=== PATIENT | female | born 1945 | race Caucasian/White ===

== ENCOUNTER 2021-08-17 18:10 | Inpatient (IN) | payer OTHER ==
[2021-08-17 23:50] VITALS: BP 141/70
[2021-08-18 00:44] LABS: HEMATOCRIT 35.3 % (37.0-47.0); HEMOGLOBIN 11.8 gm/dL (12.0-15.0); MCH 31.4 pg (26.0-34.0); MCHC 33.4 g/dL (28.0-37.0); RBC 3.75 mil/uL (4.20-5.00); RDW 15.4 % (10.5-14.5); WBC 8.5 thou/uL (4.0-11.0)
[2021-08-18 00:51] LABS: APTT 34.2 Seconds (24.5-32.8); INR 1.14; PROTIME 12.4 Seconds (10.5-12.1)
[2021-08-18 00:58] LABS: CALCIUM 8.5 mg/dL (8.5-10.1); CREATININE 1.5 mg/dL (0.6-1.0); POTASSIUM 3.7 mmol/L (3.5-5.1); TOTAL BILIRUBIN 0.4 mg/dL (0.2-1.0); TOTAL PROTEIN 6.5 g/dL (6.4-8.2)
[2021-08-18] MEDS ORDERED: VITAMIN B-121000 MC2 PO (02:39)
[2021-08-18] MEDS ORDERED: PROAIR HFA8.5 GM INH (03:28)
[2021-08-18] MEDS ORDERED: COREG25 M1 PO (03:32)
[2021-08-18] MEDS ORDERED: CETIRIZINE HCL10 MG PO (03:35)
[2021-08-18] MEDS ORDERED: SPIRONOLACT/HC1 EACH PO (03:37)
[2021-08-18] MEDS ORDERED: LEVOTHYROXINE100 MC2 PO (03:39)
[2021-08-18] MEDS ORDERED: SINGULAIR 10 MG10 MG PO (03:42)
[2021-08-18] MEDS ORDERED: BENICAR40 MG PO (03:43)
[2021-08-18] MEDS ORDERED: OMEPRAZOLE40 MG PO (03:44)
[2021-08-18] MEDS ORDERED: POTASSIUM CITR10 ME1 PO (03:46)
[2021-08-18] MEDS ORDERED: PRAVASTATIN SOD40 MG PO (03:47)
[2021-08-18] MEDS ORDERED: PROLOPRIM100 MG PO ×2 (03:49→04:27)
[2021-08-18] MEDS ORDERED: ALBUTEROL2.5 MG/0.1 INH (04:20)
[2021-08-18] MEDS ORDERED: IPRATROPIU0.2 MG/1 M INH (04:21)
[2021-08-18] MEDS ORDERED: ATROVENT HFA14 GM INH (04:22)
[2021-08-18] MEDS ORDERED: CALCIUM + D3 E1 EACH PO (04:23)
[2021-08-18] MEDS ORDERED: LIDODERM1 EACH TOP (04:25)
[2021-08-18] MEDS ORDERED: OMEGA-3 FISH1200 MG PO (04:26)
[2021-08-18] MEDS ORDERED: NASACORT10.8 ML NARES (04:27)
--- NOTE | 2021-08-18 04:47 | NUR ---
ADMITTED THIS PATIENT FROM [facility] AROUND 2350H.ON ROOM AIR BREATHING SPONTANEOULSY.NOT IN PAIN OR DISTRESS.INFORMED DR. SALMON THAT PATIENT CAME IN, ORDERS TAKEN, HE TOLD TO JUST CONTINUE THE HEPARIN DRIP.ADMISSION COMPLETED.ALL NEEDS ATTENDED.TO CONTINOUSLY MONITOR.
[2021-08-18 07:40] VITALS: BP 116/59
--- NOTE | 2021-08-18 08:55 | EKG ---
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 : 1945 Requested By: Fei Jaime Order Number: [id number] MD: Mino Boyce Measurements Intervals [place] Rate: 67 P: TN: 214 QRS: -57 QRSD: 102 T: 56 QT: 412 QTc: 435 Interpretive Statements Atrial-paced complexes Borderline prolonged TN interval Left axis deviation Abnormal R-wave progression, late transition Abnormal T, consider ischemia, anterior leads No previous ECG available for comparison Electronically Signed On 08-18-2021 8:54:50 RN MDS COORDINATOR by Mino Boyce [email or web address] <ELECTRONICALLY SIGNED> By: Mino Boyce MD, [facility] 08/18/21 0854 1 1 Mino Boyce MD, [facility] /EPI
--- NOTE | 2021-08-18 09:24 | 2DMMODE ---
[facility] [place] [address] [place] [address] 2 D/M-MODE ECHOCARDIOGRAM Name: RALF MARROQUIN Room #: 214-P ADM IN M.R.#: [id number] Admission: 08/17/21 Attend Phys: Fei Jaime MD, Discharge: Date of : 47 Report #: [id number] THIS REPORT FOR: cc: Andres Joy,Mino Harris MD [facility] ~ APPROVED REPORT Study performed: 08/18/2021 08:09:12 EXAM: Comprehensive 2D, Doppler, and color-flow Echocardiogram Patient Location: Bedside Room #: 214 Status: stat BSA: 2.19 HR: 94 bpm BP: 116/59 mmHg Rhythm: NSR Other Information Study Quality: Fair Indications Pulmonary Hypertension Diabetes Pacemaker Hypertension/HDD 2D Dimensions RVDd: 38.63 mm IVSd: 13.40 (7-11mm) LVOT Diam: 17.84 (18-24mm) LVDd: 40.45 mm PWd: 14.77 (7-11mm) Ascending Ao: 28.14 (22-36mm) LVDs: 28.77 (25-40mm) Left Atrium: 35.50 (27-40mm) Aortic Root: 32.08 mm IVC: 23.00 mm Aortic Valve AoV Peak Louie.: 1.27 m/s AO Peak Gr.: 6.44 mmHg LVOT Max P.05 mmHg LVOT Max V: 1.12 m/s HSER Vmax: 2.21 cm2 Mitral Valve [facility] [address] [address] 2 D/M-MODE ECHOCARDIOGRAM Name: MARROQUINRALF Room #: 214-P [facility] IN M.R.#: [id number] Admission: 08/17/21 Attend Phys: Fei Jaime, Discharge: Date of : 47 Report #: [id number] E/A Ratio: 0.8 MV Decel. Time: 257.14 ms MV E Max Louie.: 0.79 m/s MV A Louie.: 0.97 m/s MV PHT: 74.57 ms IVRT: 115.34 ms Pulmonary Valve PV Peak Louie.: 1.08 m/s PV Peak Gr.: 4.65 mmHg Pulmonary Vein P Vein S: 0.34 m/s P Vein A: 0.23 m/s P Vein D: 0.29 m/s P Vein A Dur.: 124.6 msec P Vein S/D Ratio: 1.17 Tricuspid Valve TR Peak Louie.: 2.72 m/s TR Peak Gr.: 29.59 mmHg PA Pressure: 40.00 mmHg Left Ventricle The left ventricle is normal size. There is normal LV segmental wall motion. Mild concentric left ventricular hypertrophy. The left ventricular systolic function is normal. The left ventricular ejection fraction is within the normal range. LVEF is 55-60%. Mild diastolic dysfunction Right Ventricle Right ventricle is at the upper limits of normal. The right ventricular systolic function is normal. Pacemaker lead is present in the right ventricle. Atria The left atrium size is normal. The right atrium size is normal. Pacemaker lead is present in the right atrium. Aortic Valve The aortic valve is mildly calcified. No aortic regurgitation is present. There is no aortic valvular stenosis. Mitral Valve Mild mitral annular calcification No mitral valve regurgitation No evidence of mitral valve stenosis. Tricuspid Valve The tricuspid valve is normal in structure. There is trace tricuspid [facility] [address] [place] [address] 2 D/M-MODE ECHOCARDIOGRAM Name: RALF MARROQUIN Room #: 214-P ADM IN M.R.#: [id number] Admission: 08/17/21 Attend Phys: Fei Jaime, Discharge: Date of : 47 Report #: [id number] regurgitation. Estimated pulmonary artery pressure of 40 mmHg. Pulmonic Valve The pulmonary valve is normal in structure. Trace pulmonic regurgitation. Great Vessels The aortic root is normal in size. IVC is dilated and collapses >50% with inspiration. Pericardium There is no pericardial effusion. <Conclusion> The left ventricular systolic function is normal. There is normal LV segmental wall motion. LVEF is 55-60%. Mild diastolic dysfunction The aortic valve is mildly calcified. No aortic regurgitation or stenosis Mild mitral annular calcification. No mitral valve regurgitation There is trace tricuspid regurgitation. Estimated pulmonary artery pressure of 40 mmHg. There is no pericardial effusion. <ELECTRONICALLY SIGNED> By: Mino Boyce MD, FACC 08/18/21922 2 2 Mino Boyce MD, FACC /INF
[2021-08-18 11:40] VITALS: BP 97/59
[2021-08-18 15:20] VITALS: BP 98/55
[2021-08-18 19:50] VITALS: BP 104/59
--- NOTE | 2021-08-19 03:59 | NUR ---
PT IS ALERT AND ORIENTED X4. UP TO BATHROOM WITH ASSSITANCEE PER NURSING. LUNGS CLEAR TO DIMINISHED ON ROOM AIR. WEARS HER CPAP MACHINE AT NIGHT. PT ON A HEPARIN DRIP AND MANAGING PER PROTOCAL BASED ON RESULTS. COMPLAINS OF HEADACHE AND TYLNOL GIVEN AND THEN PT SLEPT DURING THE NIGHT CALL LIGHT WITHIN REACH IF NEEDS ASSISTANCE PER NURSING
--- NOTE | 2021-08-19 04:03 | NUR ---
PT IS ALERT AND ORIENTED X4. LUNGS DIMINISHED. PT BEEN SLEEPING DURING THE NIGHT DENIES ANY COMPLAINTS OF PAIN NOTED. ABDOMEN IS ROUND BOWEL SOUNDS ACTIVE X4.RIGHT GROIN MYNX DRESSING CLEAN DRY AND INTACT NO DRAINAGE NOTED. CALL LIGHT WITHIN REACH IF NEEDS ASSSISSTANCE PER NURSING
[2021-08-19 04:30] VITALS: BP 117/65
[2021-08-19 07:35] VITALS: BP 114/66
[2021-08-19 10:04] LABS: HEMATOCRIT 35.9 % (37.0-47.0); HEMOGLOBIN 11.8 gm/dL (12.0-15.0); MCH 31.1 pg (26.0-34.0); MCV 94.4 fL (80.0-100.0); RBC 3.8 mil/uL (4.20-5.00); WBC 7.5 thou/uL (4.0-11.0)
[2021-08-19 10:19] LABS: CALCIUM 8.8 mg/dL (8.5-10.1); CREATININE 1.5 mg/dL (0.6-1.0); POTASSIUM 4.1 mmol/L (3.5-5.1)
[2021-08-19 11:30] VITALS: BP 113/56
[2021-08-19] MEDS ORDERED: ELIQUIS5 MG PO (13:16)
[2021-08-19 15:20] VITALS: BP 140/79
[2021-08-19 20:15] VITALS: BP 128/74
--- NOTE | 2021-08-20 04:08 | NUR ---
PT IS ALERT AND ORIENTED X4. LUNGS CLEAR TO DIMINISHED. SLEEPS WITH CPAP MACHINE ON AT NIGHT. ABDOMEN IS ROUND BOWEL SOUNDS ACTIVE X4. RT GAVE HER A TREATMENT EARLY WITH THE SHIFT PER PT REQUESTING RT. COMPLAINED OF HEADACHE TYENOL GIVEN AND PT SLEEPING AFTERWARD REPORTED IT HELPED. UP AD GALINA. VOIDS IN THE BATHROOM. CALL LIGHT WITHIN REACH IF NEEDS ASSSISTANCE PER NURSING
[2021-08-20 04:45] VITALS: BP 101/65
[2021-08-20 07:31] VITALS: BP 114/62
[2021-08-20 10:57] VITALS: BP 114/62
[2021-08-20 11:32] VITALS: BP 108/51
[2021-08-20 15:16] VITALS: BP 114/62
--- NOTE | 2021-08-20 15:17 | NUR ---
DISCHARGED PATIENT. EXPLAINED AND HIGHLIGHTED UPCOMING APPOINTMENTS AND NEW MEDICATIONS. PT STATED SHE UNDERSTOOD AND DENIED HAVING ANY ADDITIONAL QUESTIONS. IV WAS REMOVED TIP INTACT. 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 PT WAS TAKING OFF UNIT VIA WHEEL CHAIR.
== END 2021-08-20 15:22 | disposition home or self-care (01) | DRG 176 ==
LOC: 2N 18:10
PROVIDERS: Nurse Practitioner Adult Health; ADMIT Internal Medicine Cardiovascular Disease; ATTEND Internal Medicine Cardiovascular Disease
DX: I26.99 Other pulmonary embolism without acute cor pulmonale (principal); N17.9 Acute kidney failure, unspecified; I13.0 Hypertensive heart and chronic kidney disease with heart failure and stage 1 through stage 4 chronic kidney disease, or unspecified chronic kidney disease; E78.5 Hyperlipidemia, unspecified; Z20.822 Contact with and (suspected) exposure to COVID-19; Z95.0 Presence of cardiac pacemaker; E78.00 Pure hypercholesterolemia, unspecified; Z86.711 Personal history of pulmonary embolism; Z79.01 Long term (current) use of anticoagulants; Z88.8 Allergy status to other drugs, medicaments and biological substances; E11.40 Type 2 diabetes mellitus with diabetic neuropathy, unspecified; Z79.4 Long term (current) use of insulin; Z88.0 Allergy status to penicillin; E11.22 Type 2 diabetes mellitus with diabetic chronic kidney disease; N18.9 Chronic kidney disease, unspecified; M47.896 Other spondylosis, lumbar region; N39.41 Urge incontinence
CPT/HCPCS: 10081